=== PATIENT | male | born 1975 | race Caucasian/White ===

== ENCOUNTER 2017-08-21 06:13 | Day surgery (SDC) | payer OTHER ==
[2017-08-21] MEDS ORDERED: GELATIN SIZE 100 SPONGE (06:40)
[2017-08-21] MEDS ORDERED: CEFAZOLIN 1 GM INJ (07:00)
[2017-08-21] MEDS ORDERED: DEXAMETHASONE 4 MG/ML 1 ML INJ (07:00)
[2017-08-21] MEDS ORDERED: LACTATED RINGER'S 1,000 ML IV* (07:00)
[2017-08-21] MEDS ORDERED: METOCLOPRAMIDE 10 MG INJ (07:00)
[2017-08-21] MEDS ORDERED: CEFAZOLIN 2 GM/50 ML (PMX) 50 ML IVPB (07:00)
[2017-08-21] MEDS ORDERED: FENTAnyl 50 MCG/ML VIAL ×2 (07:24→08:38)
[2017-08-21] MEDS ORDERED: LIDOCAINE 2% (SDV) 5 ML INJ (07:25)
[2017-08-21] MEDS ORDERED: ROCURONIUM 50 MG INJ (07:25)
[2017-08-21] MEDS ORDERED: MIDAZOLAM 1 MG/ML 2 ML INJ (07:25)
[2017-08-21] MEDS ORDERED: SUCCINYLCHOLINE CHLORIDE 100 MG/5 ML SYG IV (07:25)
[2017-08-21] MEDS ORDERED: PROPOFOL 20 ML (07:25)
[2017-08-21] MEDS: BUPIVACAINE 0.25%/EPI (SDV) 30 ML INJ (08:37)
[2017-08-21] MEDS: THROMBIN 5000 UNIT VIAL (08:37)
[2017-08-21] MEDS: BETAMET NA PHOS/AC(6 MG/ML) 5ML INJ (10:08)
[2017-08-21] MEDS: BUPIVACAINE 0.25% (MPF) 30 ML INJ (10:08)
[2017-08-21] MEDS ORDERED: ACETAMINOPHEN 1000MG/100ML IV 100 ML (10:17)
[2017-08-21] MEDS ORDERED: ONDANSETRON 4 MG INJ (10:17)
[2017-08-21] MEDS ORDERED: SUGAMMADEX SODIUM 200 MG/2 ML VIAL IV (10:18)
[2017-08-21] MEDS ORDERED: ONDANSETRON 4 MG INJ IV (11:00)
[2017-08-21] MEDS ORDERED: hydrALAzine 20 MG INJ IV (11:00)
[2017-08-21] MEDS ORDERED: MEPERIDINE 25 MG INJ IV (11:00)
[2017-08-21] MEDS ORDERED: FENTAnyl 50 MCG/ML VIAL IV ×2 (11:00)
[2017-08-21] MEDS ORDERED: HYDROmorphONE (0.2 MG/ML) 10ML SYG IV ×3 (11:00)
[2017-08-21] MEDS ORDERED: LABETALOL HCL 20MG INJ IV (11:00)
[2017-08-21] MEDS ORDERED: DIPHENHYDRAMINE 50 MG INJ IV (11:00)
[2017-08-21] MEDS ORDERED: IPRATROPIUM (NEB) 0.5 MG/2.5 ML AMP HHN (11:00)
[2017-08-21] MEDS ORDERED: ALBUTEROL 0.083% (NEB) 2.5 MG/3 ML AMP HHN (11:00)
== END 2017-08-21 15:28 | disposition home or self-care (01) ==
LOC: SDS 06:13
DX: M51.26 Other intervertebral disc displacement, lumbar region (principal)
CPT/HCPCS: 63030; 72100; 97161